=== PATIENT | male | born 2000 | race Hispanic/Latino ===

== ENCOUNTER 2021-06-03 17:37 | Emergency (ER) | payer OTHER, SELFPAY ==
--- NOTE | 2021-06-03 19:52 | EDPHYS ---
Physician Documentation [facility] Name: Danny Barger Age: 21 yrs Sex: Male : 2000 Arrival Date: 06/03/2021 Time: 17:43 Bed Treatment Private MD: KAYY Physician Edwin Heath HPI: 06/03 19:49 This 21 yrs old Male presents to ER via Ambulatory with complaints of Rash. jmm 19:49 The patient's rash thought to be caused by an unknown cause. The rash is located on the [facility] back and left arm. Onset: The symptoms/episode began/occurred gradually, 2 week(s) ago. Associated signs and symptoms: Pertinent positives: itching, Pertinent negatives: fever, swelling of lips, swelling of throat, swelling of tongue, vomiting. The patient has not experienced similar symptoms in the past. Historical: - Allergies: 18:45 No Known Allergies; tw2 - Home Meds: 18:45 atorvastatin 20 mg oral tab 1 tab once daily [Active]; tw2 - PMHx: 18:45 hyperlipedemia; tw2 - Immunization history:: Client reports having NOT received the Covid vaccine. - Social history:: Smoking status: Reported history of juuling and/or vaping. ROS: 19:49 Constitutional: Negative for fever, chills, and weight loss, Cardiovascular: Negative jmm for chest pain, palpitations, and edema, Respiratory: Negative for shortness of breath, cough, wheezing, and pleuritic chest pain. 19:49 Skin: Positive for rash. 19:49 All other systems are negative. Exam: 19:49 Constitutional: This is a well developed, well nourished patient who is awake, alert, jmm and in no acute distress. Head/Face: atraumatic. Eyes: EOMI, no conjunctival erythema appreciated ENT: Moist Mucus Membranes Neck: Trachea midline, Supple Chest/axilla: Normal chest wall appearance and motion. Cardiovascular: Regular rate and rhythm. No edema appreciated Respiratory: Normal respirations, no respiratory distress appreciated Abdomen/GI: Non distended, soft Back: Normal ROM 19:49 Skin: Papular erythematous rash noted to the back of the left arm around the humeral region, similar rash noted to the left flank and right flank.. 19:49 Neuro: Orientation: is normal, Mentation: is normal, Memory: is normal. 19:49 Psych: Behavior/mood is pleasant, cooperative. Vital Signs: 18:44 BP 116 / 75; Pulse 70; Resp 17; Temp 98.6(TE); Pulse Ox 100% on R/A; Weight 70.76 kg; tw2 Height 5 ft. 9 in. (175.26 cm); 20:01 BP 118 / 77; Pulse 68; Resp 15; Temp 98.5(O); Pulse Ox 100% on R/A; Pain 0/10; bc5 18:44 Body Mass Index 23.04 (70.76 kg, 175.26 cm) tw2 Rene Coma Score: 19:45 Eye Response: spontaneous(4). Verbal Response: oriented(5). Motor Response: obeys sj1 commands(6). Total: 15. MDM: 19:22 Patient medically screened. [place] 19:50 Data reviewed: vital signs, nurses notes. Counseling: I had a detailed discussion with [facility] the patient and/or guardian regarding: the historical points, exam findings, and any diagnostic results supporting the discharge/admit diagnosis, the need for outpatient follow up, to return to the emergency department if symptoms worsen or persist or if there are any questions or concerns that arise at home. ED course: Patient is alert patient is alert nontoxic in appearance in the ED. Rash appears consistent with dermatitis. Patient advised to follow-up with dermatology or PCP and otherwise given strict return precautions. Patient understood and agrees plan of care.. Administered Medications: No medications were administered Disposition: 06/04 06:01 Co-signature as Attending Physician, Edwin Heath MD I agree with the assessment and [facility] plan of care. Disposition Summary: 06/03/21 19:51 Discharge Ordered Location: Home [facility] Condition: Stable [facility] Diagnosis - Rash and other nonspecific skin eruption [facility] Followup: [facility] - With: Chan Zarate MD - When: 2 - 3 days - Reason: Recheck today's complaints, Continuance of care, Re-evaluation by your physician Discharge Instructions: - Discharge Summary Sheet [facility] - Rash, Adult m Forms: - Medication Reconciliation Form [facility] - Thank You Letter [facility] - Work release form [facility] - Antibiotic Education [facility] - Prescription Opioid Use [facility] Prescriptions: - Prednisone 20 mg Oral Tablet - take 3 tablets by ORAL route once daily for 5 days; 15 tablet; Refills: 0, jmm Product Selection Permitted Signatures: Edwin Heath MD MD cha Mickail, Joel, PA PA jmm Wise, Tara RN RN tw2
--- NOTE | 2021-06-03 19:52 | ER ---
Nurse's Notes [facility] Name: Danny Barger Age: 21 yrs Sex: Male : 2000 Arrival Date: 06/03/2021 Time: 17:43 Bed Treatment Private MD: Diagnosis: Rash and other nonspecific skin eruption Presentation: 06/03 17:50 Chief complaint: Patient states: rash started 2 weeks ago. tw2 17:50 Acuity: ARABELLA 4 tw2 17:50 Chief complaint: Patient states: the rash dexter when i am in the sun or with any heat. tw2 Coronavirus screen: At this time, the client does not indicate any symptoms associated with coronavirus-19. Ebola Screen: Patient denies travel to an Ebola-affected area in the 21 days before illness onset. Initial Sepsis Screen: Does the patient meet any 2 criteria? No. Patient's initial sepsis screen is negative. Does the patient have a suspected source of infection? No. Patient's initial sepsis screen is negative. Risk Assessment: Do you want to hurt yourself or someone else? Patient reports no desire to harm self or others. Onset of symptoms was June 03, 2021. 17:50 Method Of Arrival: Ambulatory tw2 Triage Assessment: 17:43 General: Appears in no apparent distress. Behavior is calm, cooperative, appropriate tw2 for age. Pain: Denies pain. Historical: - Allergies: 18:45 No Known Allergies; tw2 - Home Meds: 18:45 atorvastatin 20 mg oral tab 1 tab once daily [Active]; tw2 - PMHx: 18:45 hyperlipedemia; tw2 - Immunization history:: Client reports having NOT received the Covid vaccine. - Social history:: Smoking status: Reported history of juuling and/or vaping. Screenin:45 Abuse screen: Denies threats or abuse. Nutritional screening: No deficits noted. sj1 Tuberculosis screening: No symptoms or risk factors identified. Fall Risk None identified. Gait- Normal/Bed Rest/Wheelchair (0 pts) Mental Status- Oriented to own ability (0 pts). Assessment: 19:45 General: Appears in no apparent distress. Pain: Denies pain. Neuro: No deficits noted. sj1 Cardiovascular: No deficits noted. Respiratory: No deficits noted. GI: No deficits noted. : No deficits noted. EENT: No deficits noted. Derm: Reports rash to rt arm and torso x 2 wks. Musculoskeletal: No deficits noted. Vital Signs: 18:44 BP 116 / 75; Pulse 70; Resp 17; Temp 98.6(TE); Pulse Ox 100% on R/A; Weight 70.76 kg; tw2 Height 5 ft. 9 in. (175.26 cm); 20:01 BP 118 / 77; Pulse 68; Resp 15; Temp 98.5(O); Pulse Ox 100% on R/A; Pain 0/10; bc5 18:44 Body Mass Index 23.04 (70.76 kg, 175.26 cm) tw2 Rene Coma Score: 19:45 Eye Response: spontaneous(4). Verbal Response: oriented(5). Motor Response: obeys sj1 commands(6). Total: 15. ED Course: 17:43 Patient arrived in ED. am2 17:43 Arm band placed on. tw2 17:50 Triage completed. tw2 18:45 [facility] 18:45 Jose De Jesus Gaines MD is Attending Physician. [facility] 19:22 Attending Physician role handed off by Jose De Jesus Gaines MD [facility] 19:22 Edwin Heath MD is Attending Physician. [facility] 19:45 No apparent distress. sj1 19:45 Patient has correct armband on for positive identification. Bed in low position. Call sj1 light in reach. Side rails up X 1. 19:45 No provider procedures requiring assistance completed. sj1 19:51 Chan Zarate MD is Referral Physician. [facility] 20:01 Patient did not have IV access during this emergency room visit. 5 Administered Medications: No medications were administered Outcome: 19:51 Discharge ordered by . [facility] 20:01 Discharged to home ambulatory. [facility] 20:01 Condition: good 20:01 Discharge instructions given to patient, Instructed on discharge instructions, follow up and referral plans. medication usage, Prescriptions given X 1. 20:02 Patient left the ED. [facility] Signatures: Edwin Heath MD MD cha Mickail, Joel, PA PA [facility] Karen Garcia RN RN tw2 Fatoumata Henry am2 Debra Adhikari RN RN 5 Dallin, Sade, RN RN sj1
[2021-06-03 20:18] VITALS: O2SAT 100
[2021-06-03 20:20] VITALS: BP 118/77; TEMP 98.5
== END 2021-06-03 20:02 | disposition home or self-care (01) ==
LOC: ER 17:37
DX: R11.2 Nausea with vomiting, unspecified (principal); E78.5 Hyperlipidemia, unspecified
CPT/HCPCS: 99282

== ENCOUNTER 2021-06-23 18:03 | Emergency (ER) | payer OTHER ==
[2021-06-23] MEDS ORDERED: NA CHLORIDE 0.9% 1,000 ML ONE (18:55)
[2021-06-23] MEDS ORDERED: ONDANSETRON 4 MG/2 ML VIAL ONE (18:55)
[2021-06-23 19:14] LABS: ALT/SGPT 39 U/L (12-78); AST/SGOT 18 U/L (15-37); Albumin 4.2 g/dL (3.4-5.0); Alkaline Phosphatase 66 U/L (45-117); BUN Blood Urea Nitrogen 9 mg/dL (7-18); Bicarbonate 28 mmol/L (21-32); Bilirubin Direct < 0.1 mg/dL (0-0.2); Bilirubin Total 0.3 mg/dL (0.2-1.0); Creatine Phosphokinase 138 U/L (39-308); Glucose Level 97 mg/dL (74-106); Lipase 176 U/L (73-393); Potassium 3.7 mmol/L (3.5-5.1); Protein, Total 7.4 g/dL (6.4-8.2); Sodium Level 142 mmol/L (136-145)
[2021-06-23 19:28] LABS: Absolute Lymphocytes (CBC) 2.1 K/uL (0.7-4.9); Basophils % 0.7 % (0-1.3); Hematocrit 46.6 % (39.6-49.0); Lymphocytes % 28.3 % (15.3-44.8); MPV 9.8 fL (7.6-11.3); RBC Red Blood Cell Count 5.52 M/uL (4.33-5.43)
--- NOTE | 2021-06-23 20:20 | EDPHYS ---
Physician Documentation [facility] Name: Danny Barger Age: 21 yrs Sex: Male : 2000 Arrival Date: 06/23/2021 Time: 18:06 Bed 11 Private MD: ED Physician Benito Mccormick HPI: 06/23 20:17 This 21 yrs old Male presents to ER via Ambulatory with complaints of Vomiting.kb 20:17 The patient presents to the emergency department with nausea, vomiting. Onset: The kb symptoms/episode began/occurred this morning. Possible causes: unknown. The symptoms are aggravated by nothing. The symptoms are alleviated by nothing. Associated signs and symptoms: Pertinent positives: nausea, vomiting, Pertinent negatives: abdominal pain, diarrhea, fever. Severity of symptoms: At their worst the symptoms were moderate in the emergency department the symptoms are unchanged. The patient has not experienced similar symptoms in the past. The patient has not recently seen a physician. "I went to work this morning and was puking a lot, then I felt like I was going to pass out so they sent me home. I went home and slept all day, but still have nausea. They told me I had to get checked out before I could go back to work.". Historical: - Allergies: 18:24 No Known Allergies; tw5 - Home Meds: 18:24 None [Active]; tw5 - PMHx: 18:24 hyperlipedemia; tw5 - PSHx: 18:24 Appendectomy; tw5 - Immunization history:: Client reports having NOT received the Covid vaccine. - Social history:: Smoking status: Patient reports the use of cigarette tobacco products, vaping. ROS: 20:17 Constitutional: Negative for fever, chills, and weight loss. kb 20:17 Abdomen/GI: Positive for nausea and vomiting. 20:17 All other systems are negative. 20:17 Neuro: Positive for near syncope. kb Exam: 20:19 Constitutional: This is a well developed, well nourished patient who is awake, alert, kb and in no acute distress. Head/Face: Normocephalic, atraumatic. ENT: Moist Mucous membranes Respiratory: Respirations even and unlabored. No increased work of breathing, no retractions or nasal flaring. Abdomen/GI: Soft, non-tender. No distention Skin: Warm, dry with normal turgor. Normal color. MS/ Extremity: Pulses equal, no cyanosis. Neurovascular intact. Full, normal range of motion. Neuro: Awake and alert, GCS 15, oriented to person, place, time, and situation. Moves all extremities. Normal gait. Psych: Awake, alert, with orientation to person, place and time. Behavior, mood, and affect are within normal limits. Vital Signs: 18:21 BP 124 / 90; Pulse 80; Resp 14; Temp 98.1; Pulse Ox 100% on R/A; Weight 72.57 kg; tw5 Height 5 ft. 9 in. (175.26 cm); Pain 4/10; 20:01 BP 119 / 70; Pulse 63; Resp 18; Pulse Ox 100% on R/A; Pain 0/10; ld1 18:21 Body Mass Index 23.63 (72.57 kg, 175.26 cm) tw5 MDM: 18:23 Patient medically screened. kb 20:17 Data reviewed: vital signs, nurses notes. Data interpreted: Pulse oximetry: on room air kb is 100 %. Interpretation: normal. Counseling: I had a detailed discussion with the patient and/or guardian regarding: the historical points, exam findings, and any diagnostic results supporting the discharge/admit diagnosis, lab results, the need for outpatient follow up, a family practitioner, to return to the emergency department if symptoms worsen or persist or if there are any questions or concerns that arise at home. 06/23 18:24 Order name: Basic Metabolic Panel; Complete Time: 19:18 kb 06/23 18:24 Order name: CBC with Diff; Complete Time: 19:34 kb 06/23 18:24 Order name: Hepatic Function; Complete Time: 19:18 kb 06/23 18:24 Order name: Lipase; Complete Time: 19:18 kb 06/23 18:24 Order name: CPK; Complete Time: 19:18 kb 06/23 18:24 Order name: IV Saline Lock; Complete Time: 18:40 kb 06/23 18:24 Order name: Labs collected and sent; Complete Time: 18:40 kb 06/23 19:17 Order name: SARS-COV-2 RT PCR; Complete Time: 20:11 EDMS Administered Medications: 18:40 Drug: NS 0.9% 1000 ml Route: IV; Rate: 1000 ml; Site: right antecubital; tw5 18:42 Drug: Zofran (Ondansetron) 4 mg Route: IVP; Site: right antecubital; tw5 Disposition: 22:54 Co-signature as Attending Physician, Benito Mccormick MD I agree with the assessment and kdr plan of care. Disposition Summary: 06/23/21 20:19 Discharge Ordered Location: Home kb Condition: Stable kb Diagnosis - Nausea with vomiting, unspecified kb Followup: kb - With: Emergency Department - When: As needed - Reason: Worsening of condition Followup: kb - With: Private Physician - When: 2 - 3 days - Reason: Recheck today's complaints, Continuance of care, Re-evaluation by your physician Discharge Instructions: - Discharge Summary Sheet kb - Nausea and Vomiting, Adult, [id number] kb Forms: - Medication Reconciliation Form kb - Thank You Letter kb - Work release form kb - Antibiotic Education kb - Prescription Opioid Use kb Prescriptions: - Zofran 4 mg Oral Tablet - take 1 tablet by ORAL route every 6 hours As needed; 20 tablet; Refills: 0, kb Product Selection Permitted Signatures: Dispatcher [employer] EDMS Shaylee Brown, NEGRA-C NEGRA-Benito Hope MD MD [facility] Phyllis Martin tw5 Corrections: (The following items were deleted from the chart) 19:17 18:25 CORONAVIRUS+LAB.BRZ ordered. EDMS EDMS 20:17 20:17 Constitutional: Negative for fever, chills, and weight loss, kb kb
--- NOTE | 2021-06-23 20:20 | ER ---
Nurse's Notes [facility] Name: Danny Barger Age: 21 yrs Sex: Male : 2000 Arrival Date: 06/23/2021 Time: 18:06 Bed 11 Private MD: Diagnosis: Nausea with vomiting, unspecified Presentation: 06/23 18:21 Chief complaint: Patient states: " This morning I was puking all, i was puking and tw5 puking and they sent me home. When I got home I slept all day. Now my throat hurts.". Coronavirus screen: Vaccine status: Patient reports being unvaccinated. Ebola Screen: Patient denies exposure to infectious person. Patient denies travel to an Ebola-affected area in the 21 days before illness onset. Initial Sepsis Screen: Does the patient meet any 2 criteria? No. Patient's initial sepsis screen is negative. Does the patient have a suspected source of infection? No. Patient's initial sepsis screen is negative. Risk Assessment: Do you want to hurt yourself or someone else? Patient reports no desire to harm self or others. Onset of symptoms was June 23, 2021. 18:21 Method Of Arrival: Ambulatory tw5 18:21 Acuity: ARABELLA 3 tw5 Triage Assessment: 18:24 General: Appears in no apparent distress. Behavior is calm, cooperative, appropriate tw5 for age. Pain: Complains of pain in uvula, left aspect of posterior pharynx and right aspect of posterior pharynx Pain currently is 4 out of 10 on a pain scale. GI: Reports nausea, vomiting. Historical: - Allergies: 18:24 No Known Allergies; tw5 - Home Meds: 18:24 None [Active]; tw5 - PMHx: 18:24 hyperlipedemia; tw5 - PSHx: 18:24 Appendectomy; tw5 - Immunization history:: Client reports having NOT received the Covid vaccine. - Social history:: Smoking status: Patient reports the use of cigarette tobacco products, vaping. Screenin:26 Abuse screen: Denies threats or abuse. Denies injuries from another. Nutritional tw5 screening: No deficits noted. Tuberculosis screening: No symptoms or risk factors identified. Fall Risk None identified. No fall in past 12 months (0 pts). Assessment: 18:26 General: Appears in no apparent distress. GI: Abdomen is non-distended, Bowel sounds tw5 present X 4 quads. Abd is soft X 4 quads Abdomen is tender to palpation X 4 quads. 20:01 Reassessment: Patient appears in no apparent distress at this time. No changes from ld1 previously documented assessment. Pt states he feels the same as when he first got here. Denies pain. Vital Signs: 18:21 BP 124 / 90; Pulse 80; Resp 14; Temp 98.1; Pulse Ox 100% on R/A; Weight 72.57 kg; tw5 Height 5 ft. 9 in. (175.26 cm); Pain 4/10; 20:01 BP 119 / 70; Pulse 63; Resp 18; Pulse Ox 100% on R/A; Pain 0/10; ld1 18:21 Body Mass Index 23.63 (72.57 kg, 175.26 cm) tw5 ED Course: 18:06 Patient arrived in ED. ds1 18:11 Shaylee Brown FNP-C [facility] kb 18:11 Benito Mccormick MD is Attending Physician. kb 18:21 Phyllis Martin is Primary Nurse. tw5 18:24 Triage completed. tw5 18:24 Arm band placed on right wrist. tw5 18:26 Patient has correct armband on for positive identification. Pulse ox on. NIBP on. Door tw5 closed. Noise minimized. Lights dimmed. Moved to private room. Verbal reassurance given. 18:40 No apparent distress. Resting quietly. Awaiting lab results. tw5 18:40 Initial lab(s) drawn, by me, sent to lab. COVID swab sent to lab. Inserted saline lock: tw5 20 gauge in right antecubital area, using aseptic technique. 18:40 CPK Sent. tw5 18:40 Basic Metabolic Panel Sent. tw5 18:40 CBC with Diff Sent. tw5 18:40 Hepatic Function Sent. tw5 18:40 Lipase Sent. tw5 21:27 No provider procedures requiring assistance completed. IV discontinued, intact, ld1 bleeding controlled, No redness/swelling at site. Administered Medications: 18:40 Drug: NS 0.9% 1000 ml Route: IV; Rate: 1000 ml; Site: right antecubital; tw5 18:42 Drug: Zofran (Ondansetron) 4 mg Route: IVP; Site: right antecubital; tw5 Outcome: 20:19 Discharge ordered by MD. puckett 21:28 Discharged to home ambulatory. ld1 21:28 Condition: stable 21:28 Discharge instructions given to patient, Instructed on discharge instructions, follow up and referral plans. medication usage, Demonstrated understanding of instructions, follow-up care, medications, Prescriptions given X 1. 21:28 Patient left the ED. ld1 Signatures: Shaylee Brown FNP-C FNP-Deja Parsons ds1 Tracie Torres RN RN ld1 Phyllis Martin tw5 Corrections: (The following items were deleted from the chart) 19:17 18:40 CORONAVIRUS+MR.LAB.HERMELINDO drawn and sent. tw5 EDMS
[2021-06-23 21:53] VITALS: TEMP 98.1; O2SAT 100
[2021-06-23 21:54] VITALS: BP 119/70
== END 2021-06-23 21:28 | disposition home or self-care (01) ==
LOC: ER 18:03
DX: R11.2 Nausea with vomiting, unspecified (principal); Z20.822 Contact with and (suspected) exposure to COVID-19; Z72.0 Tobacco use
CPT/HCPCS: 85025; 80048; 36415; 82550; 80076; 83690; 96374; 99284; U0003; J7030; J2405

== ENCOUNTER 2021-07-03 13:03 | Inpatient (IN) | payer OTHER ==
[2021-07-03 15:48] LABS: SARS-COV-2 RT PCR POSITIVE (NEGATIVE)
[2021-07-03 15:51] LABS: Absolute Lymphocytes (CBC) 0.9 K/uL (0.7-4.9); Basophils % 0.3 % (0-1.3); Hematocrit 45.7 % (39.6-49.0); Lymphocytes % 14.2 % (15.3-44.8); MPV 9.1 fL (7.6-11.3); RBC Red Blood Cell Count 5.39 M/uL (4.33-5.43)
[2021-07-03 16:04] LABS: ALT/SGPT 36 U/L (12-78); AST/SGOT 16 U/L (15-37); Albumin 3.9 g/dL (3.4-5.0); Alkaline Phosphatase 66 U/L (45-117); BUN Blood Urea Nitrogen 8 mg/dL (7-18); Bicarbonate 28 mmol/L (21-32); Bilirubin Direct < 0.1 mg/dL (0-0.2); Bilirubin Total 0.3 mg/dL (0.2-1.0); Glucose Level 110 mg/dL (74-106); Lipase 172 U/L (73-393); Potassium 3.8 mmol/L (3.5-5.1); Protein, Total 7.7 g/dL (6.4-8.2); Sodium Level 138 mmol/L (136-145)
[2021-07-03] MEDS ORDERED: NA CHLORIDE 0.9% 1,000 ML ONE (16:11)
[2021-07-03] MEDS ORDERED: FAMOTIDINE 20 MG/2 ML VIAL IV ONE (16:11)
[2021-07-03] MEDS ORDERED: METOCLOPRAMIDE 10 MG/2mL INJ ONE (16:11)
--- NOTE | 2021-07-03 16:32 | RAD REPORT ---
EXAM DESCRIPTION: RAD - Chest Single View - 07/03/2021 4:26 pm CLINICAL HISTORY: COUGH Chest pain. COMPARISON: No comparisons FINDINGS: Portable technique limits examination quality. Mild interstitial opacities are present bilaterally, slightly greater on the right, most likely repre senting viral infection. The heart is normal in size. No displaced fractures.
--- NOTE | 2021-07-03 16:47 | RAD REPORT ---
EXAM DESCRIPTION: CTAbdomen Pelvis W Contrast - 07/03/2021 4:29 pm CLINICAL HISTORY: Abdominal pain. ABD PAIN COMPARISON: No comparisons TECHNIQUE: Biphasic CT imaging of the abdomen and pelvis was performed with 100 ml non-ionic IV cont rast. All CT scans are performed using dose optimization technique as appropriate and may include automated exposure control or mA/KV adjustment according to patient size. FINDINGS: Several rounded nodular lesions are seen in the lung bases, greater on the right largest m easuring 17 mm. The liver, spleen, pancreas, adrenal glands and kidneys are within normal limits. No bowel obstruction, free air, free fluid or abscess. Moderate stool is present throughout the colon . Appendectomy. No evidence of significant lymphadenopathy. No suspicious bony findings. IMPRESSION: No acute intra-abdominal or pelvic finding. Several round nodular opacities are present particularly in the right lower lobe. These are favored t o represent infection or septic emboli.
--- NOTE | 2021-07-03 17:08 | EDPHYS ---
Physician Documentation [facility] Name: Danny Barger Age: 21 yrs Sex: Male : 2000 Arrival Date: 07/03/2021 Time: 13:03 Bed 23 Private MD: KAYY Physician Edwin Heath HPI: 07/03 15:25 This 21 yrs old Male presents to ER via Ambulatory with complaints of cp Weakness, Body Aches, Fever. 15:25 The patient presents to the emergency department with weakness of the entire body, cp generalized weakness. Associated signs and symptoms: Pertinent positives: fever, headache, cough, body aches. Severity of symptoms: in the emergency department the symptoms are unchanged despite home interventions. Historical: - Allergies: 13:21 No Known Allergies; aa5 - PMHx: 13:21 hyperlipedemia; aa5 - PSHx: 13:21 Appendectomy; aa5 - Immunization history:: Client reports having NOT received the Covid vaccine. - Social history:: Smoking status: Reported history of juuling and/or vaping. ROS: 15:30 Constitutional: Positive for body aches, Negative for fever, poor PO intake. cp 15:30 Eyes: Negative for injury, pain, redness, and discharge. cp 15:30 ENT: Negative for drainage from ear(s), ear pain, difficulty swallowing, difficulty handling secretions. 15:30 Cardiovascular: Negative for chest pain, edema, palpitations. 15:30 Respiratory: Positive for cough, Negative for shortness of breath, wheezing. 15:30 Abdomen/GI: Negative for abdominal pain, nausea, vomiting, and diarrhea. 15:30 : Negative for urinary symptoms. 15:30 Skin: Negative for cellulitis, rash. 15:30 Neuro: Positive for headache, weakness, Negative for altered mental status, numbness. 15:30 All other systems are negative. Exam: 15:35 Constitutional: The patient appears in no acute distress, alert, awake, cp non-diaphoretic, non-toxic, well developed, well nourished. 15:35 Head/Face: Normocephalic, atraumatic. cp 15:35 Eyes: Periorbital structures: appear normal, Conjunctiva: normal, no exudate, no injection, Sclera: no appreciated abnormality, Lids and lashes: appear normal, bilaterally. 15:35 ENT: External ear(s): are unremarkable, Ear canal(s): are normal, clear, TM's: dullness, bilaterally, Nose: is normal, Mouth: Lips: moist, Oral mucosa: pink and intact, moist, Posterior pharynx: Airway: no evidence of obstruction, patent, Tonsils: are normal in appearance. 15:35 Neck: ROM/movement: is normal, is supple, without pain, no range of motions limitations, no meningismus. 15:35 Chest/axilla: Inspection: normal, Palpation: is normal, no crepitus, no tenderness. 15:35 Cardiovascular: Rate: normal, Rhythm: regular. 15:35 Respiratory: the patient does not display signs of respiratory distress, Respirations: normal, no use of accessory muscles, no retractions, labored breathing, is not present, Breath sounds: are clear throughout, no decreased breath sounds, no stridor, no wheezing. 15:35 Abdomen/GI: Inspection: abdomen appears normal, Bowel sounds: active, all quadrants, Palpation: soft, in all quadrants, mild abdominal tenderness, in the right lower quadrant and left lower quadrant, rebound tenderness, is not appreciated, voluntary guarding, is elicited in the right lower quadrant and left lower quadrant. 15:35 Back: pain, is absent, ROM is normal. 15:35 Skin: cellulitis, is not appreciated, no rash present. 15:35 Neuro: Orientation: to person, place \T\ time. Mentation: is normal, Motor: moves all fours, strength is normal, Sensation: is normal. 18:57 ECG was reviewed by the Attending Physician. cp Vital Signs: 13:19 BP 130 / 82; Pulse 99; Resp 16 S; Temp 98.5(TE); Pulse Ox 100% on R/A; Weight 69.85 kg aa5 (R); Height 5 ft. 9 in. (175.26 cm) (R); 15:32 BP 114 / 78; Pulse 98; Resp 20; Temp 99.8; Pulse Ox 98% ; sl2 16:35 BP 119 / 76; Pulse 91; Resp 20; Temp 99.7; Pulse Ox 99% ; sl2 17:40 BP 123 / 73; Pulse 73; Resp 18; Temp 99.9; Pulse Ox 99% ; sl2 18:22 BP 122 / 85; Pulse 80; Resp 20; Temp 100.7; Pulse Ox 99% ; sl2 19:01 BP 109 / 67; Pulse 90; Resp 20; Pulse Ox 97% ; cc4 19:30 BP 117 / 94; Pulse 84; Resp 20; Pulse Ox 95% ; cc4 20:00 BP 115 / 61; Pulse 87; Resp 22; Temp 99.3; Pulse Ox 95% on R/A; cc4 13:19 Body Mass Index 22.74 (69.85 kg, 175.26 cm) aa5 NIH Stroke Scale Scores: 14:44 NIHSS Score: 0 sl2 MDM: 14:28 Patient medically screened. [facility] 17:05 Data reviewed: vital signs, nurses notes, lab test result(s), radiologic studies, CT cp scan, plain films. 17:05 Test interpretation: by ED physician or midlevel provider: plain radiologic studies. Physician consultation: Jose De Jesus Nunez MD was contacted at 17:00, regarding admission, to the medical/surgical unit. patient's condition, and will see patient in ED. 07/03 15:16 Order name: Basic Metabolic Panel; Complete Time: 16:07 cp 07/03 16:07 Interpretation: Normal except: GLUC 110. 07/03 15:16 Order name: CBC with Diff; Complete Time: 16:15 07/03 16:53 Interpretation: Normal except: ELAINE% 75.4; LYM% 14.2. 07/03 15:16 Order name: Hepatic Function; Complete Time: 16:07 07/03 15:16 Order name: Lipase; Complete Time: 16:07 07/03 15:48 Order name: COVID-19/FLU A+B; Complete Time: 16:07 EDIA 07/03 16:56 Order name: Blood Culture Adult (2) cp 07/03 16:56 Order name: Lactate cp 07/03 16:56 Order name: Procalcitonin cp 07/03 17:15 Order name: Basic Metabolic Panel EDMS 07/03 17:15 Order name: Basic Metabolic Panel EDMS 07/03 17:16 Order name: CBC with Automated Diff EDMS 07/03 17:16 Order name: CBC with Automated Diff EDMS 07/03 15:16 Order name: IV Saline Lock; Complete Time: 15:41 cp 07/03 15:16 Order name: Labs collected and sent; Complete Time: 15:41 cp 07/03 16:06 Order name: XRAY Chest (1 view); Complete Time: 16:50 cp 07/03 16:50 Interpretation: Report review. 07/03 16:15 Order name: CT Abd/Pelvis - IV Contrast Only; Complete Time: 16:50 cp 07/03 16:57 Order name: EKG; Complete Time: 16:58 cp 07/03 17:15 Order name: CONS Physician Consult; Complete Time: 20:09 EDMS 07/03 17:15 Order name: Chest For Pe Angio EDIA 07/03 17:16 Order name: Chest For Pe Angio EDIA 07/03 16:57 Order name: EKG - Nurse/Tech; Complete Time: 18:56 cp EC:57 Rate is 90 beats/min. Rhythm is regular. WA interval is normal. QRS interval is normal. cp QT interval is normal. T waves are Inverted in lead aVR. Interpreted by me. Reviewed by me. Administered Medications: 15:50 Drug: Pepcid (famotidine) 20 mg Route: IVP; Site: right antecubital; sl2 16:19 Follow up: Response: No adverse reaction sl2 15:50 Drug: Reglan (metoCLOPramide) 10 mg Route: IVP; Site: right antecubital; sl2 16:18 Follow up: Response: No adverse reaction; Nausea is decreased sl2 15:50 Drug: NS 0.9% 1000 ml Route: IV; Rate: 1 bolus; Site: right antecubital; sl2 16:50 Follow up: Response: No adverse reaction; IV Status: Completed infusion; IV Intake: sl2 1000ml 17:00 CANCELLED (Physician Discretion): Casirivimab-Imdevimab Dose Pack 120 mg/mL-120 mg/mL cp (EUA) 260 ml IV at calculated rate Per protocol; infuse 1,200 mg CASIRIVIMAB and 1,200 mg IMDEVIMAB (2,400 mg total dose) together as a SINGLE infusion per protocol 18:10 Drug: Ibuprofen 800 mg Route: PO; sl2 18:53 Follow up: Response: No adverse reaction sl2 18:55 Follow up: Response: No adverse reaction sl2 18:15 Drug: Rocephin - (cefTRIAXone) 1 grams Route: IVPB; Infused Over: 30 mins; Site: right sl2 antecubital; 18:46 Follow up: IV Status: Completed infusion sl2 18:53 Follow up: Response: No adverse reaction sl2 18:55 Follow up: Response: No adverse reaction sl2 18:20 Drug: Zithromax (azithromycin) 500 mg Route: IVPB; Infused Over: 1 hrs; Site: right sl2 antecubital; 19:21 Follow up: IV Status: Completed infusion sl2 18:25 Drug: Lovenox (enoxaparin) 1 mg/kg Route: Sub-Q; Site: right lower abdomen; sl2 18:52 Follow up: Response: No adverse reaction sl2 18:56 Follow up: Response: No adverse reaction sl2 Disposition Summary: 07/03/21 17:07 Hospitalization Ordered Hospitalization Status: Inpatient Admission cp Provider: Jose De Jesus Nunez cp Location: Telemetry/MedSurg (Inpatient) cp Condition: Stable cp Problem: new cp Symptoms: have improved cp Bed/Room Type: Standard Room Assignment: 411(07/03/21 18:35) eb Diagnosis - Pneumonia due to SARS-associated coronavirus cp - Pulmonary embolism without acute cor pulmonale cp Forms: - Medication Reconciliation Form cp - SBAR form cp NIH Stroke Scale - NIH Stroke Score Date: 07/03/2021 Time: 14:44 Total Score = 0 1a. Level of Consciousness (LOC) - 0(Alert) 1b. Level of Consciousness (LOC) (Month \T\ Age) - 0(Both) 1c. LOC Commands (Open \T\ Closes Eyes/Supply Chain Technician) - 0(Both) 2. Best Gaze (Lateral Gaze Paresis) - 0(Normal) 3. Visual Field Loss - 0(No visual loss) 4. Facial Palsy - 0(Normal) 5a. Left Arm: Motor (10-second hold) - 0(No drift) 5b. Right Arm: Motor (10-second hold) - 0(No drift) 6a. Left Leg: Motor (5-second hold - always test supine) - 0(No drift) 6b. Right Leg: Motor (5-second hold - always test supine) - 0(No drift) 7. Limb Ataxia (finger/nose \T\ heel/jordan - test with eyes open) - 0(Absent) 8. Sensory Loss (pinprick arms/legs/face) - 0(Normal) 9. Best Language: Aphasia (description/naming/reading) - 0(No aphasia) 10. Dysarthria (speech clarity - read or repeat words) - 0(Normal) 11. Extinction and Inattention (visual/tactile/auditory/spatial/personal) - 0(No abnormality) Initials: sl2 Addendum: 07/06/2021 10:27 Co-signature as Attending Physician, Edwin Heath MD I agree with the [facility] assessment and plan of care. Signatures: Dispatcher [employer] EDMS Edwin Heath MD MD cha Calderon, Audri, RN RN aa5 Edwin Acosta PA PA Bev Mcdaniels Sophia, RN RN sl2 Corrections: (The following items were deleted from the chart) 07/03 14:55 13:22 CORONAVIRUS+MR.LAB.BRZ ordered. EDMS EDMS 14:55 13:22 Influenza Screen (A \T\ B)+BA.LAB.BRZ ordered. EDMS EDMS 17:00 16:20 Casirivimab-Imdevimab Dose Pack 120 mg/mL-120 mg/mL (EUA) 260 ml IV at cp calculated rate Per protocol; infuse 1,200 mg CASIRIVIMAB and 1,200 mg IMDEVIMAB (2,400 mg total dose) together as a SINGLE infusion per protocol ordered. cp 18:35 17:07 cp eb
--- NOTE | 2021-07-03 17:08 | ER ---
Nurse's Notes [facility] Name: Danny Barger Age: 21 yrs Sex: Male : 2000 Arrival Date: 07/03/2021 Time: 13:03 Bed 23 Private MD: Diagnosis: Pneumonia due to SARS-associated coronavirus;Pulmonary embolism without acute cor pulmonale Presentation: 07/03 13:19 Chief complaint: Patient states: generalized weakness, cough, fever, headache, aa5 congestion, vomiting that began 1 week ago. Coronavirus screen: cough unrelated to allergies, fatigue, headache, muscle pain, vomiting. Ebola Screen: No symptoms or risks identified at this time. 13:19 Method Of Arrival: Ambulatory aa5 13:19 Acuity: ARABELLA 4 aa5 13:30 No acute neurological deficit is noted. sl2 13:30 Initial Sepsis Screen: Does the patient meet any 2 criteria? No. Patient's initial sl2 sepsis screen is negative. Risk Assessment: Do you want to hurt yourself or someone else? Patient reports no desire to harm self or others. Onset of symptoms was July 03, 2021. 19:30 Initial Sepsis Screen: Does the patient have a suspected source of infection? No. cc4 Patient's initial sepsis screen is negative. Triage Assessment: 13:35 General: Appears in no apparent distress. comfortable, Behavior is calm, cooperative. sl2 Historical: - Allergies: 13:21 No Known Allergies; aa5 - PMHx: 13:21 hyperlipedemia; aa5 - PSHx: 13:21 Appendectomy; aa5 - Immunization history:: Client reports having NOT received the Covid vaccine. - Social history:: Smoking status: Reported history of juuling and/or vaping. Screenin:00 Abuse screen:. Abuse screen: Denies threats or abuse. Nutritional screening: No sl2 deficits noted. Tuberculosis screening: No symptoms or risk factors identified. 15:00 Fall Risk Fall in past 12 months (25 points). Ambulatory Aid- None/Bed Rest/Nurse sl2 Assist (0 pts). Gait- Impaired (20 pts.). Mental Status- Oriented to own ability (0 pts). Assessment: 14:44 VAN Scoring: Visual Disturbance: No visual disturbance noted. Aphasia: No aphasia sl2 noted. Neglect: No neglect noted. The patient is alert, and able to follow commands. The patient does not exhibit slurred or garbled speech. The patient is not exhibiting difficulty speaking. The patient is exhibiting difficulty understanding words. The patient is able to swallow own secretions with no drooling or need for suction. Patient tolerated one teaspoon of water. No drooling, immediate coughing, gurgling, or clearing of the throat was noted. The patient tolerated 90mL of water. No drooling, immediate coughing, gurgling, or clearing of the throat was noted. The patient passed the bedside swallow screening. Oral medications may be given as ordered. Contact Physician for further diet orders. Pain: Complains of pain in head Pain does not radiate. Pain currently is 10 out of 10 on a pain scale. Quality of pain is described as aching, Pain began 1 day ago. Is continuous, Alleviated by nothing. Aggravated by increased activity, Noted to be grimacing, Also complains of photophobia, Current management is with Tylenol, Took Tylenol at home prior to arrival Goal of pain control is to be pain free. Neuro: No deficits noted. Cardiovascular: No deficits noted. Respiratory: No deficits noted. GI: No deficits noted. GI: No deficits noted. complain of diarrhea, denies abdominal pain. :. EENT: No deficits noted. Derm: No deficits noted. Musculoskeletal: No deficits noted. 19:30 Reassessment: Patient appears in no apparent distress at this time. General: Appears in cc4 no apparent distress. Behavior is calm, cooperative, Talking with .. 19:30 Reassessment: VSS. cc4 20:20 General: Report given to JAME Martin; no changes noted in condition.. cc4 Vital Signs: 13:19 BP 130 / 82; Pulse 99; Resp 16 S; Temp 98.5(TE); Pulse Ox 100% on R/A; Weight 69.85 kg aa5 (R); Height 5 ft. 9 in. (175.26 cm) (R); 15:32 BP 114 / 78; Pulse 98; Resp 20; Temp 99.8; Pulse Ox 98% ; sl2 16:35 BP 119 / 76; Pulse 91; Resp 20; Temp 99.7; Pulse Ox 99% ; sl2 17:40 BP 123 / 73; Pulse 73; Resp 18; Temp 99.9; Pulse Ox 99% ; sl2 18:22 BP 122 / 85; Pulse 80; Resp 20; Temp 100.7; Pulse Ox 99% ; sl2 19:01 BP 109 / 67; Pulse 90; Resp 20; Pulse Ox 97% ; cc4 19:30 BP 117 / 94; Pulse 84; Resp 20; Pulse Ox 95% ; cc4 20:00 BP 115 / 61; Pulse 87; Resp 22; Temp 99.3; Pulse Ox 95% on R/A; cc4 13:19 Body Mass Index 22.74 (69.85 kg, 175.26 cm) aa5 NIH Stroke Scale Scores: 14:44 NIHSS Score: 0 2 ED Course: 13:03 Patient arrived in ED. ds1 13:19 Arm band placed on. aa5 13:21 Triage completed. aa5 13:28 COVID swab sent to lab. Flu and/or RSV swab sent to lab. aa5 14:23 Edwin Acosta PA is PHCP. cp 14:23 Edwin Heath MD is Attending Physician. cp 14:[address], JAME is Primary Nurse. sl2 15:41 Inserted saline lock: 20 gauge in right antecubital area, using aseptic technique. dh4 Blood collected. 16:00 IV is intact. sl2 16:27 XRAY Chest (1 view) In Process Unspecified. EDMS 16:28 CT Abd/Pelvis - IV Contrast Only In Process Unspecified. EDMS 17:06 Jose De Jesus Nunez MD is Hospitalizing Provider. cp 18:44 No provider procedures requiring assistance completed. sl2 19:30 Patient has correct armband on for positive identification. Bed in low position. Call cc4 light in reach. Side rails up X 1. 20:08 CBC with Automated Diff Sent. cc4 20:08 CBC with Automated Diff Sent. cc4 20:08 Chest For Pe Angio Sent. cc4 20:08 Chest For Pe Angio Sent. cc4 20:09 Basic Metabolic Panel Sent. cc4 20:09 Basic Metabolic Panel Sent. cc4 20:50 IV is patent, is intact, # 20 g saline lock right AC.. cc4 Administered Medications: 15:50 Drug: Pepcid (famotidine) 20 mg Route: IVP; Site: right antecubital; sl2 16:19 Follow up: Response: No adverse reaction sl2 15:50 Drug: Reglan (metoCLOPramide) 10 mg Route: IVP; Site: right antecubital; sl2 16:18 Follow up: Response: No adverse reaction; Nausea is decreased sl2 15:50 Drug: NS 0.9% 1000 ml Route: IV; Rate: 1 bolus; Site: right antecubital; sl2 16:50 Follow up: Response: No adverse reaction; IV Status: Completed infusion; IV Intake: sl2 1000ml 17:00 CANCELLED (Physician Discretion): Casirivimab-Imdevimab Dose Pack 120 mg/mL-120 mg/mL cp (EUA) 260 ml IV at calculated rate Per protocol; infuse 1,200 mg CASIRIVIMAB and 1,200 mg IMDEVIMAB (2,400 mg total dose) together as a SINGLE infusion per protocol 18:10 Drug: Ibuprofen 800 mg Route: PO; sl2 18:53 Follow up: Response: No adverse reaction sl2 18:55 Follow up: Response: No adverse reaction sl2 18:15 Drug: Rocephin - (cefTRIAXone) 1 grams Route: IVPB; Infused Over: 30 mins; Site: right sl2 antecubital; 18:46 Follow up: IV Status: Completed infusion sl2 18:53 Follow up: Response: No adverse reaction sl2 18:55 Follow up: Response: No adverse reaction sl2 18:20 Drug: Zithromax (azithromycin) 500 mg Route: IVPB; Infused Over: 1 hrs; Site: right sl2 antecubital; 19:21 Follow up: IV Status: Completed infusion sl2 18:25 Drug: Lovenox (enoxaparin) 1 mg/kg Route: Sub-Q; Site: right lower abdomen; sl2 18:52 Follow up: Response: No adverse reaction sl2 18:56 Follow up: Response: No adverse reaction sl2 Intake: 16:50 IV: 1000ml; Total: 1000ml. sl2 Outcome: 17:07 Decision to Hospitalize by Provider. cp 20:50 Admitted to Med/surg accompanied by jarrett, via wheelchair, room 411, Report called to ajay Martin RN. 20:50 Condition: stable 20:50 Instructed on the need for admit, Demonstrated understanding of instructions. 21:08 Patient left the ED. cc4 NIH Stroke Scale - NIH Stroke Score Date: 07/03/2021 Time: 14:44 Total Score = 0 1a. Level of Consciousness (LOC) - 0(Alert) 1b. Level of Consciousness (LOC) (Month \T\ Age) - 0(Both) 1c. LOC Commands (Open \T\ Closes Eyes/Server Software Engineer) - 0(Both) 2. Best Gaze (Lateral Gaze Paresis) - 0(Normal) 3. Visual Field Loss - 0(No visual loss) 4. Facial Palsy - 0(Normal) 5a. Left Arm: Motor (10-second hold) - 0(No drift) 5b. Right Arm: Motor (10-second hold) - 0(No drift) 6a. Left Leg: Motor (5-second hold - always test supine) - 0(No drift) 6b. Right Leg: Motor (5-second hold - always test supine) - 0(No drift) 7. Limb Ataxia (finger/nose \T\ heel/jordan - test with eyes open) - 0(Absent) 8. Sensory Loss (pinprick arms/legs/face) - 0(Normal) 9. Best Language: Aphasia (description/naming/reading) - 0(No aphasia) 10. Dysarthria (speech clarity - read or repeat words) - 0(Normal) 11. Extinction and Inattention (visual/tactile/auditory/spatial/personal) - 0(No abnormality) Initials: sl2 Signatures: Dispatcher [employer] [facility] MillsDeja middleton ds1 Leona Boyd RN RN aa5 Edwin Acosta PA PA cp Huhn, Donald 4 Elvia Yost RN RN cc4 Corrina St RN RN sl2
[2021-07-03] MEDS ORDERED: ONDANSETRON 4 MG/2 ML VIAL IV PRN (17:19)
[2021-07-03] MEDS ORDERED: CASIRIVIMAB/IMDEVIMAB 10 ML VIAL ONE (17:21)
[2021-07-03] MEDS ORDERED: NA CHLORIDE 0.9% 0 ML ONE ×2 (17:23)
[2021-07-03] MEDS ORDERED: IBUPROFEN 400 MG TAB ONE (18:30)
[2021-07-03] MEDS ORDERED: AZITHROMYCIN 500 MG INJ IVPB ONE (18:30)
[2021-07-03] MEDS ORDERED: NA CHLORIDE 0.9% 250 ML ONE (18:30)
[2021-07-03] MEDS ORDERED: CEFTRIAXONE 1000 MG/VIAL ONE (18:30)
[2021-07-03] MEDS ORDERED: ENOXAPARIN 60 MG/0.6 ML SQ ONE (18:31)
[2021-07-03] MEDS ORDERED: ENOXAPARIN 80 MG/0.8 ML SQ SCH (21:00)
[2021-07-03 21:21] VITALS: BMI 22.7
[2021-07-03] MEDS: NA CHLORIDE 0.9% 1,000 ML IV SCH (21:47)
[2021-07-04] MEDS: NA CHLORIDE 0.9% 1,000 ML IV SCH (04:00)
[2021-07-04] MEDS ORDERED: ENOXAPARIN 80 MG/0.8 ML SQ SCH (06:00)
[2021-07-04 06:01] LABS: Absolute Lymphocytes (CBC) 1.5 K/uL (0.7-4.9); Basophils % 0.5 % (0-1.3); Hematocrit 41.1 % (39.6-49.0); Lymphocytes % 30.4 % (15.3-44.8); MPV 8.9 fL (7.6-11.3); RBC Red Blood Cell Count 4.89 M/uL (4.33-5.43)
[2021-07-04 06:22] LABS: BUN Blood Urea Nitrogen 6 mg/dL (7-18); Bicarbonate 27 mmol/L (21-32); Glucose Level 93 mg/dL (74-106); Potassium 4.1 mmol/L (3.5-5.1); Sodium Level 141 mmol/L (136-145)
--- NOTE | 2021-07-04 08:12 | P.HP ---
Certification for Inpatient Patient admitted to: Inpatient With expected LOS: >2 Midnights Patient will require the following post-hospital care: None Practitioner: I am a practitioner with admitting privileges, knowledge of patient current condition, hospital course, and medical plan of care. Services: Services provided to patient in accordance with Admission requirements found in Title 42 Section 412.3 of the Code of Federal Regulations Patient History Date of Service: 07/03/21 Reason for admission: Shortness breath; intractable and vomiting History of Present Illness: Patient is a 21-year-old gentleman who comes into the hospital with shortness of breath, headache, and persistent nausea and vomiting. He has no prior medical issues; patient has no history of substance abuse and he denies any intravenous drug use. She has been feeling poorly for the last 48 hr. He decided to come into the emergency room when he was no longer able to keep anything down for the last 24 hr. She was also feeling short of breath. In the emergency room he had a workup performed including CT of the abdomen and pelvis. Workup revealed he had COVID-19 pneumonia as well as questionable septic embolis. There was no abnormality with the abdomen or pelvis. Will get a dedicated CT scan of his chest as well as Dopplers of the lower extremity. We started him on IV fluids and anti emetics along with anti coagulation. Depending on what the CT PE protocol shows further workup including pulmonary and cardiology consultation may be obtained. Allergies No Known Allergies Allergy (Verified 07/03/21 21:04) Home Medications: NK [No Home Meds] 07/03/21 - Past Medical/Surgical History Has patient received pneumonia vaccine in the past: No Past Medical History: Patient denies medical history Past Surgical History: Patient denies surgical history - Family History Father Family History: Reviewed- Non-Contributory - Social History Smoking Status: Never smoker Alcohol use: No CD- Drugs: No Place of Residence: Home Review of Systems 10-point ROS is otherwise unremarkable Physical Examination - Vital Signs Temperature: 98.8 F Blood Pressure: 114/64 Pulse: 76 Respirations: 20 Pulse Ox (%): 97 - Physical Exam General: Alert, In no apparent distress, Oriented x3 HEENT: Atraumatic, PERRLA, Mucous membr. moist/pink, EOMI, Sclerae nonicteric Neck: Supple, 2+ carotid pulse no bruit, No LAD, Without JVD or thyroid abnormality Respiratory: Diminished Cardiovascular: Regular rate/rhythm, Normal S1 S2 Gastrointestinal: Normal bowel sounds, Soft and benign, Non-distended, No tenderness Musculoskeletal: No tenderness Integumentary: No rashes Neurological: Normal gait, Normal speech, Normal strength at 5/5 x4 extr, Normal tone, Normal affect Lymphatics: No axilla or inguinal lymphadenopathy - Studies Laboratory Data (last 24 hrs) 07/03/21 15:38: WBC 6.10 D, Hgb 15.7, Hct 45.7, Plt Count 155 07/03/21 15:38: Sodium 138, Potassium 3.8, BUN 8, Creatinine 0.91, Glucose 110 H, Total Bilirubin 0.3, AST 16, ALT 36, Alkaline Phosphatase 66, Lipase 172 Assessment & Plan - Problems (Diagnosis) (1) Pulmonary emboli Current Visit: Yes Status: Acute (2) Pneumonia due to COVID-19 virus Current Visit: Yes Status: Acute (3) Intractable nausea and vomiting Current Visit: Yes Status: Acute - Plan 1. Start with IV steroids; low dose 2. Anticoagulation; blood cx 3. CT chest-PE 4. O2 per protocol 5. Pulmonary consultation 6. Continue with albuterol inhaler therapy; also supportive care 7. IVFs and antiemetics 8. GI and DVT prophylaxis Discharge Plan: Home Plan to discharge in: Greater than 2 days - Advance Directives Does patient have a Living Will: No Does patient have a Durable POA for Healthcare: No - Code Status/Comfort Care Code Status Assessed: Yes Code Status: Full Code Critical Care: No Time Spent Managing PTS Care (In Minutes): 50
--- NOTE | 2021-07-04 09:05 | RAD REPORT ---
EXAM DESCRIPTION: CT - Chest For Pe Angio - 07/04/2021 8:28 am CLINICAL HISTORY: PE/septic emboli COMPARISON: Abdomen Pelvis W Contrast dated 07/03/2021 FINDINGS: Chest Wall: No suspicious thyroid nodules or pathologic lymphadenopathy. Lungs: Lower lung pulmonary nodules which are both solid ground-glass, the largest measuring 18 dara meters. Pleura: No significant effusions or pneumothorax. Mediastinum/ronna: No pathologic lymphadenopathy. Pulmonary arteries/Aorta: No filling defect identified. No aortic aneurysm. Heart: No significant pericardial effusion. Normal heart size. Upper abdomen: No acute abnormality. Bones: No acute abnormality. All CT scans are performed using dose optimization technique as appropriate and may include automated exposure control or mA/KV adjustment according to patient size. IMPRESSION: Negative for pulmonary embolism. Rounded semi-solid lower lung lesions most likely repre senting sequela of pneumonia, including septic emboli. Suggest 3 month follow-up chest CT to ensure r esolution.
--- NOTE | 2021-07-04 11:05 | P.CNS ---
Date of Consult: 07/04/21 Reason for Consult: Coronavirus pneumonia abnormal CT scan Chief Complaint: Shortness breath; intractable and vomiting History of Present Illness: Patient is 21 years of age admitted with shortness of breath nausea vomiting worse over the past 48 hours denies history of intravenous drug abuse CT scan is abnormal he has patchy peripheral changes on the right side of his lungs Allergies No Known Allergies Allergy (Verified 07/03/21 21:04) Home Medications: NK [No Home Meds] 07/03/21 - Family History Father Family History: Reviewed- Non-Contributory - Social History Alcohol use: No CD- Drugs: No Place of Residence: Home Review of Systems Respiratory: As per HPI Cardiovascular: As per HPI Physical Examination Temp Pulse Resp BP Pulse Ox 98.8 F 76 20 114/64 97 07/04/21 08:12 07/04/21 08:12 07/04/21 08:12 07/04/21 08:12 07/04/21 08:12 General: Alert, In no apparent distress, Cooperative Respiratory: Clear to auscultation bilaterally Laboratory Data (last 24 hrs) 07/03/21 15:38: WBC 6.10 D, Hgb 15.7, Hct 45.7, Plt Count 155 07/03/21 15:38: Sodium 138, Potassium 3.8, BUN 8, Creatinine 0.91, Glucose 110 H, Total Bilirubin 0.3, AST 16, ALT 36, Alkaline Phosphatase 66, Lipase 172 - Problems (1) Abnormal CT scan Current Visit: Yes Status: Acute Plan: Patient is 21 years of age admitted with nausea vomiting oxygenation is normal where sats are satisfactory one episode of slight fever otherwise normal blood pressure no evidence of pulmonary emboli chemistries reviewed procalcitonin level is negative blood cultures pending no evidence of coronavirus pneumonia as his blood cultures are negative stable discharge on p.o. antibiotics procalcitonin level is negative doubt severe sepsis start on p.o. levofloxacin
[2021-07-04] MEDS: levoFLOXacin 750 MG TAB PO SCH (11:43)
--- NOTE | 2021-07-04 18:56 | RAD REPORT ---
EXAM DESCRIPTION: US - Extrem Venous W Compress Leo - 07/04/2021 6:26 pm CLINICAL HISTORY: DVT COMPARISON: None. TECHNIQUE: Real-time sonographic evaluation of the bilateral lower extremity deep venous systems was performed. FINDINGS: Normal compressibility, flow augmentation, phasic flow and spontaneous flow is identified in both the left and right lower extremity deep venous systems. No intraluminal filling defects seen. IMPRESSION: No DVT in either lower extremity.
[2021-07-04] MEDS: ACETAMINOPHEN 500 MG TAB PO PRN (20:06)
[2021-07-05] MEDS: ACETAMINOPHEN 500 MG TAB PO PRN (04:53)
[2021-07-05 06:15] LABS: Absolute Lymphocytes (CBC) 1.2 K/uL (0.7-4.9); Basophils % 0.5 % (0-1.3); Hematocrit 42.8 % (39.6-49.0); Lymphocytes % 24.4 % (15.3-44.8); MPV 9.2 fL (7.6-11.3); RBC Red Blood Cell Count 5.15 M/uL (4.33-5.43)
[2021-07-05] MEDS: levoFLOXacin 750 MG TAB PO SCH (07:34)
[2021-07-05 08:04] LABS: ALT/SGPT 35 U/L (12-78); AST/SGOT 21 U/L (15-37); Albumin 3.7 g/dL (3.4-5.0); Alkaline Phosphatase 59 U/L (45-117); BUN Blood Urea Nitrogen 8 mg/dL (7-18); Bicarbonate 26 mmol/L (21-32); Bilirubin Total 0.3 mg/dL (0.2-1.0); Glucose Level 106 mg/dL (74-106); Potassium 3.7 mmol/L (3.5-5.1); Protein, Total 7.1 g/dL (6.4-8.2); Sodium Level 138 mmol/L (136-145)
[2021-07-05 11:23] VITALS: BP 110/69; TEMP 97.7
--- NOTE | 2021-07-05 11:50 | P.PN ---
Subjective Date of Service: 07/04/21 Pulmonary has wanted patient to be on oral antibiotics. The septic emboli is unlikely as cultures are negative & procalcitonin is negative. Continue on anti coagulation at the time of discharge if okay with Pulmonary. Patient states he is clinically feeling much better. Review of Systems 10-point ROS is otherwise unremarkable Physical Examination - Vital Signs Temperature: 97.7 F Blood Pressure: 110/69 Pulse: 75 Respirations: 18 Pulse Ox (%): 97 - Physical Exam General: Alert, In no apparent distress, Oriented x3 Respiratory: Clear to auscultation bilaterally, Normal air movement Cardiovascular: Regular rate/rhythm, Normal S1 S2 Gastrointestinal: Normal bowel sounds, Soft and benign, Non-distended, No tenderness Musculoskeletal: No clubbing, No swelling, No tenderness Integumentary: No rashes Neurological: Normal speech, Normal tone, Normal affect Lymphatics: No axilla or inguinal lymphadenopathy - Studies Medications List Reviewed: Yes Assessment & Plan - Problems (Diagnosis) (1) Pulmonary emboli Current Visit: Yes Status: Acute (2) Pneumonia due to COVID-19 virus Current Visit: Yes Status: Acute (3) Intractable nausea and vomiting Current Visit: Yes Status: Acute - Plan Continue with plan of care as mentioned below: 1. Hep-Lock IV 2. Anticoagulation; blood cx 3. CT chest-PE unremarkable-still with questionable septic emboli 4. O2 per protocol 5. Pulmonary consultation appreciated 6. Continue with albuterol inhaler therapy; also supportive care 7. IVFs and antiemetics 8. GI and DVT prophylaxis Discharge Plan: Home Plan to discharge in: Greater than 2 days - Advance Directives Does patient have a Living Will: No Does patient have a Durable POA for Healthcare: No - Code Status/Comfort Care Code Status: Full Code
[2021-07-05 13:07] VITALS: O2SAT 97
--- NOTE | 2021-07-05 14:38 | P.DS ---
Discharge Date: 07/05/21 Disposition: ROUTINE DISCHARGE Discharge Condition: GOOD Reason for Admission: Shortness breath; intractable and vomiting - Problems (1) Pulmonary emboli Status: Acute (2) Pneumonia due to COVID-19 virus Status: Acute (3) Intractable nausea and vomiting Status: Acute Brief History of Present Illness: Patient is a 21-year-old gentleman who comes into the hospital with shortness of breath, headache, and persistent nausea and vomiting. He has no prior medical issues; patient has no history of substance abuse and he denies any intravenous drug use. She has been feeling poorly for the last 48 hr. He decided to come into the emergency room when he was no longer able to keep anything down for the last 24 hr. She was also feeling short of breath. In the emergency room he had a workup performed including CT of the abdomen and pelvis. Workup revealed he had COVID-19 pneumonia as well as questionable septic embolis. There was no abnormality with the abdomen or pelvis. Will get a dedicated CT scan of his chest as well as Dopplers of the lower extremity. We started him on IV fluids a nd anti emetics along with anti coagulation. Depending on what the CT PE protocol shows further workup including pulmonary and cardiology consultation may be obtained. Hospital Course: Patient started feeling better over the 1st 24 hr. Patient was started on antibiotics and anti coagulation. Pulmonary just recommended antibiotic therapy. They did not feel patient had a septic emboli. At this time patient blood cultures have been negative. Patient is clinically feeling much better. He is stable for discharge home. He will need to follow up with Pulmonary as an outpatient. Vital Signs/Physical Exam: Temp Pulse Resp BP Pulse Ox 97.7 F 75 18 110/69 97 07/05/21 11:50 07/05/21 11:50 07/05/21 11:50 07/05/21 11:50 07/05/21 11:50 General: Alert, In no apparent distress, Oriented x3 Laboratory Data at Discharge: WBC 4.90 K/uL (4.3-10.9) 07/05/21 05:49 Hgb 15.1 g/dL (13.6-17.9) 07/05/21 05:49 Hct 42.8 % (39.6-49.0) 07/05/21 05:49 Plt Count 148 K/uL (152-406) L 07/05/21 05:49 Sodium 138 mmol/L (136-145) 07/05/21 05:49 Potassium 3.7 mmol/L (3.5-5.1) 07/05/21 05:49 BUN 8 mg/dL (7-18) 07/05/21 05:49 Creatinine 0.73 mg/dL (0.55-1.3) 07/05/21 05:49 Glucose 106 mg/dL (74-106) 07/05/21 05:49 Total Bilirubin 0.3 mg/dL (0.2-1.0) 07/05/21 05:49 AST 21 U/L (15-37) 07/05/21 05:49 ALT 35 U/L (12-78) 07/05/21 05:49 Alkaline Phosphatase 59 U/L (45-117) 07/05/21 05:49 Lipase 172 U/L (73-393) 07/03/21 15:38 Home Medications: Promethazine Tab [Phenergan] 25 mg PO Q6HP PRN #10 tab 07/05/21 levoFLOXacin [Levaquin*] 750 mg PO DAILY #7 tab 07/05/21 New Medications: levoFLOXacin [Levaquin*] 750 mg PO DAILY #7 tab Promethazine Tab [Phenergan] 25 mg PO Q6HP PRN #10 tab PRN Reason: Nausea and vomiting Physician Discharge Instructions: OK TO DC IV AND DC HOME FOLLOW-UP WITH PRIMARY CARE PROVIDER IN 1-2 WEEKS FOLLOW-UP WITH pulmonary IN 1-2 WEEKS RETURN TO THE ER IF symptoms worsen CALL or TEXT DR. ROSARIO AT [phone] IF ANY QUESTIONS REGARDING HOSPITAL STAY. PLEASE CALL THE FLOOR AT [phone] IF ANY MEDICATION OR NURSING QUESTIONS. Diet: Regular Activity: Ad zeenat Followup: Damion Gee MD [ACTIVE - CAN ADMIT] - 1-2 Weeks (pit slagman- call to schedule an appointment ) NONE,NONE [Primary Care Provider] - Time spent managing pt's care (in minutes): 35
[2021-07-05 20:34] LABS: Ferritin 329.3 ng/mL (26-388)
== END 2021-07-05 15:30 | disposition home or self-care (01) | DRG 177 ==
LOC: ER 13:03 → ERHOLD 17:09 → 4TH 18:36
PROVIDERS: ADMIT Hospitalist; ATTEND Hospitalist
DX: U07.1 COVID-19 (principal); J12.82 Pneumonia due to coronavirus disease 2019; R11.2 Nausea with vomiting, unspecified
CPT/HCPCS: 0240U; 36415; 71045; 71275; 74177; 80048; 80053; 80076; 82728; 83605; 83690; 84145; 85025; 85379; 86140; 87040; 93005; 93970; 96361; 96365; 96372; 96375; 99285; J0456; J1650; J2405; J2765; J7030; J7050; Q9967

== ENCOUNTER 2022-01-03 20:43 | Emergency (ER) | payer OTHER ==
--- OUTSIDE RECORDS SUMMARY | 2022-01-03 20:46 | XMS REPORT | Continuity of Care Document ---
:2000 Author Organization [facility] t Address [address] [place] [address] Care Team Providers Name Role Phone Unavailable Unavailable Unavailable Payers Payer Name Policy Type Policy Number Effective Date Expiration Date S ource Problems This patient has no known problems. Allergies, Adverse Reactions, Alerts Allergy Allergy Status Severity Reaction(s) Onset Inactive Treating Comm ents Source Name Type Date Date Clinician No Known DA Active U 2020-0 [facility] No Known DA Active U 2020-0 [facility] Medications This patient has no known medications. Procedures This patient has no known procedures. Encounters Start End Encounter Admission Attending Care Care Encounter Source Date/Time Date/Time Type Type Clinicians Facility Department ID 2020-05-10 [id number] 10:45:00 [id number] [facility] Results Test Description Test Time Test Comments Results Result [facility] e Comments - CT MAXIFAC W/O 2020-05-10 Name: ALFA KABAR [facility] 12:24:00 [facility] : 2000 Age/S: 20 / M [address] Unit #: [id number] Loc: [place] [address] Phys: Robert Burdick MD Acct: [id number] Dis Date: Status: REG ER PHONE #: [phone] Exam Date: 05/10/2020 1127 FAX #: [phone] Reason: fall EXAMS: CPT CODE: [id number] [place] MAXIFAC [place] [address] EXAM: CT FACIAL BONES WITHOUT CONTRAST INDICATION: fall COMPARISON: None. TECHNIQUE: Axial CT imaging of the facial bones was obtained without administration of intravenous contrast. Coronal and sagittal reconstructions were submitted for review. This CT exam was performed using one or more of the following dose reduction techniques: Automated exposure control; Adjustment of the mA and/or kV according to patient size; Use of iterative reconstruction technique. DISCUSSION: No acute fracture is identified. The mandible is intact. The temporomandibular joints are well-aligned. The nasal bones are normal. The paranasal sinuses and mastoid air cells are clear. There is soft tissue swelling overlying the right lip and chin. There appears to be radiopaque debris within the subcutaneous tissues at the location of the laceration site (measuring 2 x 2 x 7 mm). The orbits and globes are intact. There is no intraconal hematoma. IMPRESSION: No acute fracture seen. Soft tissue defect over the region of the right lip/chin. There is radiopaque debris seen within the subcutaneous continue this tissue consistent with a foreign body. at 1224 Reported and signed by: Ivania Thomas MD CC: Robert Burdick MD Technologist:RT Iliana (R) CT CTDI: 20.85 DLP: 390.86 Trnscb Date/Time: 05/10/2020 (1044) María [email or web address] Orig Print D/T: S: 05/10/2020 (7407) PAGE 1 Signed Report
[2022-01-03 22:20] LABS: SARS-COV-2 RT PCR NEGATIVE (NEGATIVE)
--- NOTE | 2022-01-03 22:28 | EDPHYS ---
Physician Documentation [facility] Name: Danny Barger Age: 21 yrs Sex: Male : 2000 Arrival Date: 01/03/2022 Time: 20:45 Bed 9 Private MD: ED Physician Benito Mccormick HPI: 01/03 21:15 This 21 yrs old Male presents to ER via Ambulatory with complaints of Runny cp Nose, Sore Throat. 21:15 The patient or guardian reports cough, that is intermittent, with no sputum. Onset: The cp symptoms/episode began/occurred 3 day(s) ago. Associated signs and symptoms: Pertinent positives: rhinorrhea, sore throat, Pertinent negatives: diarrhea, ear ache, fever, vomiting. 21:15 Patient reports symptoms are improving with taking of over the counter meds. cp Historical: - Allergies: 21:05 No Known Allergies; ld1 - Home Meds: 21:05 None [Active]; ld1 - PMHx: 21:05 hyperlipedemia; ld1 - PSHx: 21:05 Appendectomy; ld1 - Immunization history:: Adult Immunizations up to date, Client reports having NOT received the Covid vaccine. - Social history:: Smoking status: Patient denies any tobacco usage or history of. Patient/guardian denies using alcohol. ROS: 21:20 Constitutional: Negative for body aches, fever, poor PO intake. cp 21:20 Eyes: Negative for injury, pain, redness, and discharge. cp 21:20 ENT: Positive for rhinorrhea, sore throat, Negative for drainage from ear(s), ear pain, difficulty swallowing, difficulty handling secretions. 21:20 Respiratory: Positive for cough, with no reported sputum, Negative for shortness of breath, wheezing. 21:20 Abdomen/GI: Negative for abdominal pain, nausea, vomiting, and diarrhea. 21:20 Skin: Negative for rash. 21:20 Neuro: Negative for headache. 21:20 All other systems are negative. Exam: 21:25 Constitutional: The patient appears in no acute distress, alert, awake, non-toxic, well cp developed, well nourished. 21:25 Head/Face: Normocephalic, atraumatic. cp 21:25 Eyes: Periorbital structures: appear normal, Conjunctiva: normal, no exudate, no injection, Lids and lashes: appear normal, bilaterally. 21:25 ENT: External ear(s): are unremarkable, Ear canal(s): are normal, clear, TM's: dullness, bilaterally, Nose: is normal, Mouth: Lips: moist, Oral mucosa: pink and intact, moist, Posterior pharynx: Airway: no evidence of obstruction, patent, Tonsils: are normal in appearance, erythema, is not appreciated, exudate, is not appreciated. 21:25 Neck: ROM/movement: is normal, is supple, without pain, no range of motions limitations. 21:25 Chest/axilla: Inspection: normal. 21:25 Cardiovascular: Rate: normal. 21:25 Respiratory: the patient does not display signs of respiratory distress, Respirations: normal, no use of accessory muscles, no retractions, labored breathing, is not present, Breath sounds: are clear throughout, no decreased breath sounds, no stridor, no wheezing. 21:25 Abdomen/GI: Exam negative for discomfort, distension, guarding, Inspection: abdomen appears normal. Vital Signs: 21:03 BP 131 / 89; Pulse 83; Resp 18; Temp 98.9(O); Pulse Ox 100% on R/A; Weight 66.22 kg; ld1 Height 5 ft. 9 in. (175.26 cm); Pain 0/10; 22:38 BP 122 / 86; Pulse 81; Resp 18; Pulse Ox 100% on R/A; ld1 21:03 Body Mass Index 21.56 (66.22 kg, 175.26 cm) ld1 MDM: 21:00 Patient medically screened. cp 22:28 Data reviewed: vital signs, nurses notes, lab test result(s). cp 22:28 Differential Diagnosis: Bronchitis Influenza Pharyngitis Otitis Media Pneumonia. cp Counseling: I had a detailed discussion with the patient and/or guardian regarding: the historical points, exam findings, and any diagnostic results supporting the discharge/admit diagnosis, lab results, to return to the emergency department if symptoms worsen or persist or if there are any questions or concerns that arise at home. 01/03 21:03 Order name: COVID-19/FLU A+B (Document "Date of Onset" if Symptomatic); Complete Time: ld1 22:22 Administered Medications: No medications were administered Disposition: 01/04 06:13 Co-signature as Attending Physician, Benito Mccormick MD I agree with the assessment and kdr plan of care. Disposition Summary: 01/03/22 22:28 Discharge Ordered Location: Home cp Problem: new cp Symptoms: are unchanged cp Condition: Stable cp Diagnosis - Influenza due to identified novel influenza A virus cp Followup: cp - With: Private Physician - When: 2 - 3 days - Reason: Worsening of condition Discharge Instructions: - Discharge Summary Sheet cp - Influenza, Adult cp - Form - Excuse from Work, School, or Physical Activity cp Forms: - Medication Reconciliation Form cp - Thank You Letter cp - Antibiotic Education cp - Prescription Opioid Use cp - Work release form mw2 Signatures: Dispatcher [employer] EDMS Benito Mccormick MD MD kdr Page, Corey, PA PA cp Tracie Torres, RN RN ld1
--- NOTE | 2022-01-03 22:28 | ER ---
Nurse's Notes [facility] Name: Danny Barger Age: 21 yrs Sex: Male : 2000 Arrival Date: 01/03/2022 Time: 20:45 Bed 9 Private MD: Diagnosis: Influenza due to identified novel influenza A virus Presentation: 01/03 21:03 Chief complaint: Patient states: My family has tested positive for the flu. My work ld1 will not let me return. Now I am having a runny nose, cough, fever X 3 days. Coronavirus screen: At this time, the client does not indicate any symptoms associated with coronavirus-19. Ebola Screen: No symptoms or risks identified at this time. Initial Sepsis Screen: Does the patient meet any 2 criteria? No. Patient's initial sepsis screen is negative. Does the patient have a suspected source of infection? No. Patient's initial sepsis screen is negative. Risk Assessment: Do you want to hurt yourself or someone else? Patient reports no desire to harm self or others. Onset of symptoms was January 03, 2022. 21:03 Method Of Arrival: Ambulatory ld1 21:03 Acuity: ARABELLA 4 ld1 Triage Assessment: 21:05 General: Appears in no apparent distress. comfortable, Behavior is calm, cooperative, ld1 appropriate for age. Pain: Denies pain. EENT: No signs and/or symptoms were reported regarding the EENT system. Neuro: Level of Consciousness is awake, alert, obeys commands, Oriented to person, place, time, situation. Cardiovascular: Capillary refill < 3 seconds Patient's skin is warm and dry. Respiratory: Airway is patent Respiratory effort is even, unlabored. GI: Abdomen is flat, non-distended. : No signs and/or symptoms were reported regarding the genitourinary system. Derm: No signs and/or symptoms reported regarding the dermatologic system. Musculoskeletal: No signs and/or symptoms reported regarding the musculoskeletal system. Historical: - Allergies: 21:05 No Known Allergies; ld1 - Home Meds: 21:05 None [Active]; ld1 - PMHx: 21:05 hyperlipedemia; ld1 - PSHx: 21:05 Appendectomy; ld1 - Immunization history:: Adult Immunizations up to date, Client reports having NOT received the Covid vaccine. - Social history:: Smoking status: Patient denies any tobacco usage or history of. Patient/guardian denies using alcohol. Screenin:10 Abuse screen: Denies threats or abuse. Denies injuries from another. Nutritional ld1 screening: No deficits noted. Tuberculosis screening: No symptoms or risk factors identified. Fall Risk None identified. Assessment: 21:10 Reassessment: see triage assessmeent. Respiratory: Airway is patent Respiratory effort ld1 is even, unlabored, Respiratory pattern is regular, symmetrical, Breath sounds are clear bilaterally. Vital Signs: 21:03 BP 131 / 89; Pulse 83; Resp 18; Temp 98.9(O); Pulse Ox 100% on R/A; Weight 66.22 kg; ld1 Height 5 ft. 9 in. (175.26 cm); Pain 0/10; 22:38 BP 122 / 86; Pulse 81; Resp 18; Pulse Ox 100% on R/A; ld1 21:03 Body Mass Index 21.56 (66.22 kg, 175.26 cm) ld1 ED Course: 20:45 Patient arrived in ED. mr 20:50 Edwin Acosta PA is PHCP. cp 20:50 Benito Mccormick MD is Attending Physician. cp 21:01 Tracie Torres, RN is Primary Nurse. ld1 21:05 Triage completed. ld1 21:05 Arm band placed on right wrist. ld1 21:10 Patient has correct armband on for positive identification. Bed in low position. Call ld1 light in reach. Side rails up X2. Pulse ox on. NIBP on. Door closed. Noise minimized. Warm blanket given. 21:10 No provider procedures requiring assistance completed. Patient did not have IV access ld1 during this emergency room visit. 21:14 COVID-19/FLU A+B (Document "Date of Onset" if Symptomatic) Sent. ld1 Administered Medications: No medications were administered Outcome: 22:28 Discharge ordered by . cp 22:39 Discharged to home ambulatory. ld1 22:39 Condition: stable 22:39 Discharge instructions given to patient, Instructed on discharge instructions, follow up and referral plans. Demonstrated understanding of instructions, follow-up care. 22:39 Patient left the ED. ld1 Signatures: Joiner Luisana mr Edwin Acosta PA PA cp Dibbern, Tracie, RN RN ld1
[2022-01-03 22:43] VITALS: TEMP 98.9; O2SAT 100
[2022-01-03 22:44] VITALS: BP 122/86
== END 2022-01-03 22:39 | disposition home or self-care (01) ==
LOC: ER 20:43
DX: J10.1 Influenza due to other identified influenza virus with other respiratory manifestations (principal); Z20.822 Contact with and (suspected) exposure to COVID-19; E78.5 Hyperlipidemia, unspecified
CPT/HCPCS: 0240U; 99283